=== PATIENT | male | born 1980 | race Caucasian/White ===

== ENCOUNTER 2018-05-03 15:57 | Emergency (ER) | payer SELFPAY ==
[2018-05-03] MEDS ORDERED: ONDANSETRON 4 MG/2 ML VIAL ONE (16:55)
[2018-05-03] MEDS ORDERED: FENTANYL CITR 100 MCG/2 ML ONE (16:55)
[2018-05-03 16:58] LABS: Absolute Lymphocytes (CBC) 1.6 K/uL (0.7-4.9); Absolute Monocytes 0.6 K/uL (0.1-1.3); Absolute Neutrophil 5.8 K/uL (1.8-8.0); Basophils % 0.5 % (0-1.3); Eosinophils % 2.9 % (0-4.4); Hematocrit 42.5 % (39.6-49.0); Lymphocytes % 19.1 % (15.3-44.8); MCH 31.5 pg (27.0-35.0); MPV 7.9 fL (7.6-11.3); Monocytes % 7.1 % (3.3-12.3); RBC Red Blood Cell Count 4.73 M/uL (4.33-5.43)
[2018-05-03 17:05] LABS: Protime INR 1.03
--- NOTE | 2018-05-03 17:05 | RAD REPORT ---
EXAM DESCRIPTION: Izzy Single View05/03/2018 4:31 pm CLINICAL HISTORY: Chest pain COMPARISON: none FINDINGS: The lungs appear clear of acute infiltrate. The heart is normal size IMPRESSION: No acute abnormalities displayed
[2018-05-03 17:18] LABS: ALT/SGPT 79 U/L (12-78); AST/SGOT 37 U/L (15-37); Alkaline Phosphatase 72 U/L (45-117); BUN Blood Urea Nitrogen 10 mg/dL (7-18); Bicarbonate 29 mmol/L (21-32); Bilirubin Direct 0.3 mg/dL (0-0.2); Bilirubin Total 2.8 mg/dL (0.2-1.0); CKMB Creatine Kinase MB 2.3 ng/mL (0.3-3.6); Creatine Phosphokinase 142 U/L (39-308); Glucose Level 86 mg/dL (74-106); Magnesium 2.4 mg/dL (1.8-2.4); NT PRO-BNP 21 pg/mL (<125); Potassium 3.2 mmol/L (3.5-5.1); Protein, Total 7.9 g/dL (6.4-8.2); Sodium Level 140 mmol/L (136-145)
--- NOTE | 2018-05-03 17:23 | EDPHYS ---
Physician Documentation [facility] Name: Aashish Holloway Age: 37 yrs Sex: Male : 1980 Arrival Date: 05/03/2018 Time: 16:06 Bed 16 Private MD: ED Physician Conner Soto HPI: 05/03 16:13 This 37 yrs old Male presents to ER via EMS with complaints of Chest Pain. cp 16:13 The patient or guardian reports chest pain that is located primarily in the anterior cp chest wall, bilaterally. 16:13 The pain does not radiate. Associated signs and symptoms: Pertinent negatives: cp abdominal pain, cough, diaphoresis, lower extremity pain, lower extremity swelling, near syncope, recent travel, shortness of breath, syncope. 16:13 The chest pain is described as stabbing. cp 16:13 Duration: The patient or guardian reports a single episode, that is still ongoing. cp Severity of pain: in the emergency department the pain is unchanged despite EMS interventions. Patient reports last use of methamphetamine was yesterday. Historical: - Allergies: 16:10 No Known Allergies; sv - Home Meds: 16:10 None [Active]; sv - PMHx: 16:10 Hepatitis C; sv - PSHx: 16:10 None; sv - Immunization history:: Adult Immunizations unknown. - Social history:: Patient uses street drugs, Methamphetamine (Meth) Smoking status: Patient uses tobacco products, smokes one pack cigarettes per day. - Ebola Screening: : No symptoms or risks identified at this time. ROS: 16:17 Constitutional: Negative for body aches, chills, fever, poor PO intake. cp 16:17 Eyes: Negative for injury, pain, redness, and discharge. cp 16:17 ENT: Negative for drainage from ear(s), ear pain, sore throat, difficulty swallowing, difficulty handling secretions. 16:17 Neck: Negative for pain with movement, pain at rest, stiffness, tenderness. 16:17 Cardiovascular: Positive for chest pain, Negative for edema, palpitations. 16:17 Respiratory: Negative for cough, shortness of breath, wheezing. 16:17 Abdomen/GI: Negative for abdominal pain, nausea, vomiting, and diarrhea. 16:17 Back: Negative for pain at rest, pain with movement, radiated pain. 16:17 Skin: Negative for cellulitis, rash. 16:17 Neuro: Negative for altered mental status, headache, syncope, near syncope, weakness. 16:17 All other systems are negative. Exam: 16:08 ECG was reviewed by the Attending Physician. cp 16:22 Constitutional: The patient appears in no acute distress, alert, awake, cp non-diaphoretic, non-toxic, well developed, well nourished, uncomfortable. 16:22 Head/Face: Normocephalic, atraumatic. cp 16:22 Eyes: Periorbital structures: appear normal, Pupils: equal, round, and reactive to light and accomodation, Extraocular movements: intact throughout, Conjunctiva: normal, no exudate, no injection, Sclera: no appreciated abnormality, Lids and lashes: appear normal, bilaterally. 16:22 ENT: External ear(s): are unremarkable, Ear canal(s): are normal, clear, TM's: bulging, is not appreciated, bilaterally, dullness, bilaterally, erythema, is not appreciated, bilaterally, Nose: is normal, Mouth: is normal, Posterior pharynx: is normal, airway is patent, no erythema, no exudate, Voice: is normal. 16:22 Neck: External neck: is normal, ROM/movement: is normal, is supple, without pain, no range of motions limitations, no nuchal rigidity. 16:22 Chest/axilla: Inspection: normal, Palpation: crepitus, is not appreciated, tenderness, that is moderate, of the anterior aspect of right upper chest, anterior aspect of left upper chest and mid-sternal area, that partially reproduces the patient's complaints. 16:22 Cardiovascular: Rate: normal, Rhythm: regular, Pulses: Pulses are 2+ in right radial artery and left radial artery. Heart sounds: murmur, not appreciated, rub, not appreciated, gallop, not appreciated, Edema: is not appreciated, JVD: is not appreciated. 16:22 Respiratory: the patient does not display signs of respiratory distress, Respirations: normal, no use of accessory muscles, no retractions, no splinting, no tachypnea, labored breathing, is not present, Breath sounds: are clear throughout, no decreased breath sounds, no stridor, no wheezing. 16:22 Abdomen/GI: Inspection: abdomen appears normal, Bowel sounds: active, all quadrants, Palpation: abdomen is soft and non-tender, in all quadrants, rebound tenderness, is not appreciated, voluntary guarding, is not appreciated, involuntary guarding, is not appreciated. 16:22 Back: pain, is absent, ROM is normal. 16:22 Musculoskeletal/extremity: Exam is negative for calf tenderness, decreased range of motion, edema. 16:22 Skin: cellulitis, is not appreciated, no rash present. 16:22 Neuro: Orientation: to person, place \T\ time. Mentation: lucid, able to follow commands, Motor: moves all fours, strength is normal. Vital Signs: 16:10 BP 126 / 94; Pulse 80; Resp 18; Temp 97.7; Pulse Ox 99% ; Weight 72.57 kg; Height 5 ft. sv 7 in. (170.18 cm); Pain 10/10; 17:18 BP 118 / 7; Pulse 78; Resp 18; Pulse Ox 98% on R/A; ph 17:55 Temp 97.8(TE); ph 16:10 Body Mass Index 25.06 (72.57 kg, 170.18 cm) sv MDM: 16:12 Patient medically screened. cp 17:00 Differential diagnosis: abnormal EKG, acute myocardial infarction, acute pericarditis, cp costochondritis, esophagitis, myocarditis, pericarditis, pleurisy, pneumonia, pneumothorax, pulmonary embolus, stable angina, unstable angina. 17:21 Data reviewed: vital signs, nurses notes, lab test result(s), EKG, radiologic studies, cp plain films. 17:21 Test interpretation: by ED physician or midlevel provider: ECG, plain radiologic cp studies. Counseling: I had a detailed discussion with the patient and/or guardian regarding: the historical points, exam findings, and any diagnostic results supporting the discharge/admit diagnosis, lab results, radiology results, to return to the emergency department if symptoms worsen or persist or if there are any questions or concerns that arise at home. Response to treatment: the patient's symptoms have markedly improved after treatment, and as a result, I will discharge patient. Special discussion: Based on the patient's history, exam, and Dx evaluation, there is no indication for emergent intervention or inpatient Tx. It is understood by the patient/guardian that if the Sx's persist or worsen they need to return immediately for re-evaluation. 05/03 16:13 Order name: Basic Metabolic Panel; Complete Time: 17:19 cp 05/03 16:13 Order name: CBC with Diff; Complete Time: 17:13 cp 05/03 17:13 Interpretation: Reviewed. cp 05/03 16:13 Order name: Ckmb; Complete Time: 17:19 cp 05/03 16:13 Order name: CPK; Complete Time: 17:19 cp 05/03 16:13 Order name: LFT's; Complete Time: 17:19 cp 05/03 16:13 Order name: Magnesium; Complete Time: 17:19 cp 05/03 16:13 Order name: NT PRO-BNP; Complete Time: 17:19 cp 05/03 16:13 Order name: PT-INR; Complete Time: 17:13 cp 05/03 16:13 Order name: Ptt, Activated; Complete Time: 17:13 cp 05/03 16:13 Order name: Troponin (emerg Dept Use Only); Complete Time: 17:19 cp 05/03 16:13 Order name: XRAY Chest (1 view); Complete Time: 17:13 cp 05/03 17:13 Interpretation: Report review. cp 05/03 16:11 Order name: EKG; Complete Time: 16:11 sv 05/03 16:11 Order name: EKG - Nurse/Tech; Complete Time: 16:38 sv 05/03 16:13 Order name: Cardiac monitoring; Complete Time: 17:09 cp 05/03 16:13 Order name: IV Saline Lock; Complete Time: 17:09 cp 05/03 16:13 Order name: Labs collected and sent; Complete Time: 17:09 cp 05/03 16:13 Order name: O2 Per Protocol; Complete Time: 17:09 cp 05/03 16:13 Order name: O2 Sat Monitoring; Complete Time: 17:09 cp EC:08 Rate is 64 beats/min. Rhythm is regular. CT interval is normal. QRS interval is normal. cp QT interval is normal. No ST changes noted. Interpreted by me. Reviewed by me. Administered Medications: 17:00 Drug: fentaNYL (PF) 25 mcg Route: IVP; Site: right hand; ph 17:00 Drug: Zofran 4 mg Route: IVP; Site: right hand; ph 17:09 Not Given (Other Intervention Used; Administered by EMS): Aspirin Chewable Tablet 324 ph mg PO once; 81 mg tablets x 4 17:45 Drug: Potassium Effervescent Tablet 50 mEq Route: PO; ph 17:45 Drug: TORadol 30 mg Route: IVP; Site: right hand; ph Disposition: 18:58 Co-signature as Attending Physician, Conner Soto MD. rn Disposition: 05/03/18 17:22 Discharged to Home. Impression: Other chest pain. - Condition is Stable. - Discharge Instructions: Nonspecific Chest Pain, Aspirin and Your Heart. - Prescriptions for Ibuprofen 800 mg Oral Tablet - take 1 tablet by ORAL route every 8 hours As needed take with food; 30 tablet. - Medication Reconciliation Form, Thank You Letter, Antibiotic Education, Prescription Opioid Use form. - Follow up: Private Physician; When: 2 - 3 days; Reason: Recheck today's complaints. - Problem is new. - Symptoms have improved. Signatures: Dispatcher [employer] Flor Collier RN RN Conner Soto MD MD rn Hall, Patricia, RN RN Pa Carey PA PA cp Corrections: (The following items were deleted from the chart) 17:55 17:22 05/03/2018 17:22 Discharged to Home. Impression: Other chest pain. Condition is ph Stable. Forms are Medication Reconciliation Form, Thank You Letter, Antibiotic Education, Prescription Opioid Use. Follow up: Private Physician; When: 2 - 3 days; Reason: Recheck today's complaints. Problem is new. Symptoms have improved. cp
--- NOTE | 2018-05-03 17:23 | ER ---
Nurse's Notes [facility] Name: Aashish Holloway Age: 37 yrs Sex: Male : 1980 Arrival Date: 05/03/2018 Time: 16:06 Bed 16 Private MD: Diagnosis: Other chest pain Presentation: 05/03 16:01 Presenting complaint: EMS states: c/o sharp sternum pain. Pt was holding his breath sv while getting vitals and then proceeded to hyperventilate. Waveform capnography was in the 20, then placed on NRB without O2 and capnography went up to 35. BP 126/82 HR 79 100% RA. BS-95, ASA 324 mg PO given. Pt was placed in police custody after being found passed out in a car and took several officers to arouse the pt. Pt reports meth use yesterday. Transition of care: [facility]. Onset of symptoms was May 03, 2018. Care prior to arrival: None. 16:01 Method Of Arrival: EMS: [facility] sv 16:01 Acuity: DOREEN 3 sv 17:17 Risk Assessment: Do you want to hurt yourself or someone else? Patient reports no ph desire to harm self or others. Initial Sepsis Screen: Does the patient meet any 2 criteria? No. Patient's initial sepsis screen is negative. Does the patient have a suspected source of infection? No. Patient's initial sepsis screen is negative. Historical: - Allergies: 16:10 No Known Allergies; sv - Home Meds: 16:10 None [Active]; sv - PMHx: 16:10 Hepatitis C; sv - PSHx: 16:10 None; sv - Immunization history:: Adult Immunizations unknown. - Social history:: Patient uses street drugs, Methamphetamine (Meth) Smoking status: Patient uses tobacco products, smokes one pack cigarettes per day. - Ebola Screening: : No symptoms or risks identified at this time. Screenin:16 Abuse screen: Denies threats or abuse. Denies injuries from another. Nutritional ph screening: No deficits noted. Tuberculosis screening: No symptoms or risk factors identified. Fall Risk None identified. Assessment: 16:45 General: Appears in no apparent distress. uncomfortable, slender, unkempt, Behavior is ph calm, cooperative, appropriate for age. Pain: Complains of pain in mid-sternal area Pain does not radiate. Quality of pain is described as sharp, stabbing, Pain began suddenly. Neuro: Level of Consciousness is awake, obeys commands, lethargic, Oriented to person, place, time, situation, Pupils are dilated, Denies headache. Cardiovascular: Reports chest pain, nausea, shortness of breath, Capillary refill < 3 seconds Patient's skin is warm and dry. Respiratory: Airway is patent Respiratory effort is even, unlabored, Respiratory pattern is regular, symmetrical. Derm: Skin is healthy with good turgor, Skin is pink, warm \T\ dry. Musculoskeletal: Circulation, motion, and sensation intact. Range of motion: intact in all extremities. Vital Signs: 16:10 BP 126 / 94; Pulse 80; Resp 18; Temp 97.7; Pulse Ox 99% ; Weight 72.57 kg; Height 5 ft. sv 7 in. (170.18 cm); Pain 10/10; 17:18 BP 118 / 7; Pulse 78; Resp 18; Pulse Ox 98% on R/A; ph 17:55 Temp 97.8(TE); ph 16:10 Body Mass Index 25.06 (72.57 kg, 170.18 cm) sv ED Course: 16:06 Patient arrived in ED. sv 16:09 Triage completed. sv 16:11 Pa Carey PA is PHCP. cp 16:12 Conner Soto MD is Attending Physician. cp 16:30 XRAY Chest (1 view) In Process Unspecified. EDMS 16:35 Raysa Sainz, RN is Primary Nurse. ph 16:37 Missed attempt(s): 22 gauge Bleeding controlled, band aid applied, catheter tip intact. jd2 16:37 EKG done, by outside plant technician. reviewed by Conner Soto MD. jd2 16:55 Initial lab(s) drawn, by nd, sent to lab. Inserted saline lock: 24 gauge in right hand, ph using aseptic technique. Patient maintains SpO2 saturation greater than 95% on room air. 17:17 Arm band placed on. ph 17:18 Patient has correct armband on for positive identification. Bed in low position. Call ph light in reach. Side rails up X 1. early childhood coordinator on. Pulse ox on. NIBP on. PD at bedside. 17:54 No provider procedures requiring assistance completed. IV discontinued, intact, ph bleeding controlled, No redness/swelling at site. Pressure dressing applied. Administered Medications: 17:00 Drug: fentaNYL (PF) 25 mcg Route: IVP; Site: right hand; ph 17:00 Drug: Zofran 4 mg Route: IVP; Site: right hand; ph 17:09 Not Given (Other Intervention Used; Administered by EMS): Aspirin Chewable Tablet 324 ph mg PO once; 81 mg tablets x 4 17:45 Drug: Potassium Effervescent Tablet 50 mEq Route: PO; ph 17:45 Drug: TORadol 30 mg Route: IVP; Site: right hand; ph Outcome: 17:22 Discharge ordered by MD. cp 17:54 Discharged to Law Enforcement ph 17:54 Condition: good 17:54 Discharge instructions given to patient, police, Instructed on discharge instructions, follow up and referral plans. medication usage, Demonstrated understanding of instructions, follow-up care, medications, Prescriptions given X 1. 17:55 Patient left the ED. ph Signatures: Dispatcher [employer] EDFlor Werner RN RN sv Hall, Patricia, RN RN ph Pa Carey PA PA cp Donley, Jonika jd2
[2018-05-03] MEDS ORDERED: KETOROLAC 30 MG/ML INJ ONE (17:34)
[2018-05-03] MEDS ORDERED: POTASSIUM 25 MEQ EFFERV TAB ONE (17:34)
--- NOTE | 2018-05-04 06:30 | EKG ---
Test Date: 2018-05-03 Test Time: 16:04:12 Lifeguard: PASCALE MEASUREMENT RESULTS: Intervals: Rate: 64 [place]: 146 QRSD: 90 QT: 380 QTc: 392 [place]: P: 58 [place]: 146 QRS: 68 T: 53 INTERPRETIVE STATEMENTS: Normal sinus rhythm Normal ECG Compared to ECG 03/14/2010 12:59:18 No significant changes Electronically Signed On 05-04-18 06:30:02 CDT by Benigno Sanchez
== END 2018-05-03 17:55 | disposition home or self-care (01) ==
LOC: ER 15:57
DX: R07.89 Other chest pain (principal); F17.210 Nicotine dependence, cigarettes, uncomplicated
CPT/HCPCS: 36415; 71045; 80048; 80076; 82550; 82553; 83735; 83880; 84484; 85025; 85610; 85730; 93005; 96374; 96375; 99285; J2405; J3010

== ENCOUNTER 2023-01-16 18:03 | Emergency (ER) | payer SELFPAY ==
--- NOTE | 2023-01-16 18:26 | EDPHYS ---
Physician Documentation [facility] Name: Aashish Holloway Age: 42 yrs Sex: Male : 1980 Arrival Date: 01/16/2023 Time: 18:09 Bed Waiting Private MD: ED Physician Jaylon Conley Historical: - Allergies: 01/16 18:20 No Known Allergies; ll1 - PMHx: 18:20 Hepatitis C; ll1 - PSHx: 18:20 None; ll1 - Immunization history:: Client reports receiving the 1st dose of the Covid vaccine. - Social history:: Smoking status: Patient denies any tobacco usage or history of. Vital Signs: 18:18 BP 159 / 91; Pulse 102; Resp 16; Temp 98.7; Pulse Ox 96% ; Weight 72.57 kg; Height 5 ll1 ft. 8 in. ; Pain 3/10; 18:18 Body Mass Index 24.33 (72.57 kg, 172.72 cm) ll1 18:18 Pain Scale: Adult ll1 MDM: 18:09 Patient medically screened. kb 18:25 Data reviewed: vital signs, nurses notes. kb Administered Medications: No medications were administered Disposition Summary: 01/16/23 18:25 Discharge Ordered Location: Home kb Condition: Stable kb Diagnosis - Cutaneous abscess of left upper limb kb Followup: kb - With: Emergency Department - When: As needed - Reason: Worsening of condition Followup: kb - With: Private Physician - When: 2 - 3 days - Reason: Recheck today's complaints, Continuance of care, Re-evaluation by your physician Discharge Instructions: - Discharge Summary Sheet ll1 - Skin Abscess, [id number] kb Forms: - Work release form ll1 - Medication Reconciliation Form kb - Thank You Letter kb - Antibiotic Education kb - Prescription Opioid Use kb Prescriptions: - Bactrim DS 800-160 mg Oral Tablet - take 1 tablet by ORAL route every 12 hours for 7 days; 14 tablet; Refills: 0, kb Product Selection Permitted Signatures: Carrie Roche FNP-C FNP-Emmanuel Candelaria, RN RN ll1
--- NOTE | 2023-01-16 18:26 | ER ---
Nurse's Notes [facility] Name: Aashish Holloway Age: 42 yrs Sex: Male : 1980 Arrival Date: 01/16/2023 Time: 18:09 Bed Waiting Private MD: Diagnosis: Cutaneous abscess of left upper limb Presentation: 01/16 18:18 Chief complaint: Patient states: L FA abscess, redness, swelling for 2-3 weeks. ll1 Coronavirus screen: Client denies travel out of the [place] in the last 14 days. At this time, the client does not indicate any symptoms associated with coronavirus-19. Ebola Screen: Patient denies travel to an Ebola-affected area in the 21 days before illness onset. Initial Sepsis Screen: Does the patient meet any 2 criteria? No. Patient's initial sepsis screen is negative. Does the patient have a suspected source of infection? Yes: Skin breakdown/wound. Risk Assessment: Do you want to hurt yourself or someone else? Patient reports no desire to harm self or others. Onset of symptoms was December 31, 2022. 18:18 Method Of Arrival: Ambulatory ll1 18:18 Acuity: DOREEN 5 ll1 Historical: - Allergies: 18:20 No Known Allergies; ll1 - PMHx: 18:20 Hepatitis C; ll1 - PSHx: 18:20 None; ll1 - Immunization history:: Client reports receiving the 1st dose of the Covid vaccine. - Social history:: Smoking status: Patient denies any tobacco usage or history of. Vital Signs: 18:18 BP 159 / 91; Pulse 102; Resp 16; Temp 98.7; Pulse Ox 96% ; Weight 72.57 kg; Height 5 ll1 ft. 8 in. ; Pain 3/10; 18:18 Body Mass Index 24.33 (72.57 kg, 172.72 cm) ll1 18:18 Pain Scale: Adult ll1 ED Course: 18:09 Patient arrived in ED. mr 18:09 [facility]C [facility]. kb 18:09 Jaylon Conley MD is Attending Physician. kb 18:20 Triage completed. ll1 18:21 Arm band placed on. ll1 Administered Medications: No medications were administered Outcome: 18:25 Discharge ordered by . kb Signatures: Carrie Roche FNP-C IT QUALITY ANALYST-Ckb Olson Sara mr Emmanuel Perez, RN RN ll1 Corrections: (The following items were deleted from the chart) 18:21 18:18 Resp 16bpm; Temp 98.7F; 72.57 kg; Height 5 ft. 8 in.; BMI: 24.3; Pain 3, ll1 Adult; ll1
[2023-01-16] MEDS ORDERED: SMZ./TMP. 800/160 MG TABLET ONE (18:27)
[2023-01-16 23:18] VITALS: BP 159/91; TEMP 98.7; O2SAT 96
== END 2023-01-16 19:34 | disposition home or self-care (01) ==
LOC: ER 18:03
DX: L02.414 Cutaneous abscess of left upper limb (principal); B19.20 Unspecified viral hepatitis C without hepatic coma
CPT/HCPCS: 99283